=== PATIENT | female | born 1990 | race Hispanic/Latino ===

== ENCOUNTER 2017-05-10 12:26 | Inpatient (IN) | payer BC ==
[2017-05-10 12:57] VITALS: BMI 31.4
[2017-05-10] MEDS ORDERED: Zolpidem Tartrate 5 MG TAB PO PRN (13:35)
[2017-05-10] MEDS ORDERED: Lidocaine 1% (PF) 30 ML VIAL SC PRN (13:35)
[2017-05-10] MEDS ORDERED: Ibuprofen 800 MG TAB PO PRN (13:35)
[2017-05-10] MEDS ORDERED: HYDROcodone/Acetaminophen 5/325 mg Tablet PO PRN ×2 (13:35)
[2017-05-10] MEDS ORDERED: LR / Pitocin 40 units/1000 ml 1,000 ML IV PRN (13:35)
[2017-05-10] MEDS ORDERED: Acetaminophen 500 MG TAB PO PRN (13:35)
[2017-05-10] MEDS ORDERED: Ondansetron HCl/PF 4 MG/2 ML Vial IVP PRN (13:35)
[2017-05-10] MEDS ORDERED: Promethazine HCl 25 MG/ML VIAL IM PRN (13:35)
[2017-05-10 14:05] LABS: Hematocrit 38.2 % (36.0-47.0); Mean Platelet Volume 8.5 fL (7.4-10.4); Red Blood Cell (RBC) Count 4.37 mill/uL (4.20-5.40); White Blood Cell (WBC) Count 7.5 thou/uL (4.8-10.8)
--- NOTE | 2017-05-10 20:04 | PDOC.LDHP ---
Labor and Delivery H&P Chief complaint: other (sent [facility] clinic for IOL) HPI: sent [facility] clinic following routine appointment where she complained of decreased movement since Sunday. A BPP was performed and the score was 4/8 with points lost for tone, and breathing. Current gestational age (weeks): 39 Due date: 05/12/17 Dating criteria: last menstrual period Grav: 1 Para: 0 Current complications: gestational diabetes (A1), other (hyperemesis gravidarum, + H. pylori infection tx antenatally.) Abnormal US findings: No Past Medical History: Rh neg Current medications: pre-betito vitamins, other (promethazine) Allergies/Adverse Reactions: Allergies Allergy/AdvReac Type Severity Reaction Status Date / Time No Known Allergies Allergy Verified 12/13/16 01:29 Social history: none - Physical Exam Vital signs reviewed and normal: yes General: NAD Heart: RRR Lungs: CTAB Abdomen: gravid Extremeties: trace edema FHT: category 2 (strip on admission. non reactive. 125bpm baseline, moderate variability, no decelerations, no accelerations.) [place] contractions every: Q5 - non- painful - Vaginal Exam cm dilated: 0 (by speculum exam) - OB Labs RH: negative Antibody Screen: negative HIV: negative RPR: negative HEPSAg: negative 1 hour GCT: positive (3 hour not completed, patiet vomited glucola two seperate occasions) GBS: negative - Assessment L&D Assessment: medically indicated induction (decreased movement and failed bPP 4/8) - Plan Plan: admit to L&D, cervical ripening (using [employer] balloon filled with 80cc for 12 hours,) -: 1. cervical ripening for 12 hours using balloon until either SROM, balloon self dc, or 12 hours elapsed time 2. depending on CTX pattern after cook's balloon, will discuss with patient either AROM in intact vs, pitocin 3. check serum glucose BID 4 anticipate
--- NOTE | 2017-05-11 05:24 | PDOC.LDPN ---
Labor & Delivery Progress Note - Subjective Subjective: comfortable - Objective Vital signs reviewed and normal: yes General: NAD (sleeping) Uterine fundus: non tender Dilation: 5 Effacement: 75% Station: -1 FHT: category 1 [place] contractions every: absent AROM: clear fluid -: labor augmentation with AROM. If after two hours, pt does not have adequate contractions, will start pitocin for augmentation.
--- NOTE | 2017-05-11 08:19 | PDOC.LDPN ---
Labor & Delivery Progress Note - Subjective Subjective: comfortable - Objective General: NAD Uterine fundus: non tender Dilation: Pt was not examined at this time because she is not having adequate CTX FHT: category 1 [place] contractions every: 0 - Assessment (1) Primigravida Code(s): Z34.00 - ENCNTR FOR SUPRVSN OF NORMAL FIRST , UNSP TRIMESTER Current Visit: Yes Status: Acute (2) History of biophysical profile Code(s): Z92.89 - PERSONAL HISTORY OF OTHER MEDICAL TREATMENT Current Visit: Yes Status: Acute Plan: pitocin for augmentation
[2017-05-11] MEDS: LR 500 ML/Oxytocin 10 units 500 ML IV SCH (08:28)
[2017-05-11] MEDS: Lactated Ringer's 1,000 ML IV PRN ×2 (11:49→19:32)
[2017-05-11] MEDS ORDERED: Fentanyl 4 mcg/Marc 0.1% Cadd 100 ML ONE (16:59)
[2017-05-11] MEDS ORDERED: D5 LR 500 ML IV PRN (17:22)
[2017-05-11] MEDS ORDERED: D5 LR 500 ML IV SCH (17:30)
--- NOTE | 2017-05-11 17:41 | PDOC.LDPN ---
Labor & Delivery Progress Note - Subjective Subjective: painful contractions - Objective General: breathing through contractions Uterine fundus: non tender Dilation: 5 Effacement: 90% Station: 0 FHT: category 1 IUPC placed: yes - Assessment (1) Primigravida Code(s): Z34.00 - ENCNTR FOR SUPRVSN OF NORMAL FIRST , UNSP TRIMESTER Current Visit: Yes Status: Acute (2) History of biophysical profile Code(s): Z92.89 - PERSONAL HISTORY OF OTHER MEDICAL TREATMENT Current Visit: Yes Status: Acute (3) Primary inadequate contractions Code(s): O62.0 - PRIMARY INADEQUATE CONTRACTIONS Current Visit: Yes Status: Acute -: A bedside US performed at 0800 confirmed baby in Vertex MIN presentation. A: for IOL for a BPP /8 on 05/10/17. I suspect inadequate uterine inertia needed to cause cervical dilatation. P: IUPC placed. Recommended Epidural for pain management as pt is no longer coping with labor to which patient agrees Change fluid to D5LR consulted with OB hospitalist Dr. Kelley who agree with assessment of lack of uterine inertia. Will continue with pitocin augmentation until adequate contractions power is reached as evident by > 200MVU. Recheck cervical dilation 2-4 hours after adequate MVUs are documented, and if no cervical dilation will proceed with CS at that time.
[2017-05-11] MEDS ORDERED: diphenhydrAMINE 50 MG/ML VIAL IVP PRN ×2 (17:58→23:53)
[2017-05-11] MEDS ORDERED: Lactated Ringer's 500 ML IV PRN (17:58)
[2017-05-11] MEDS ORDERED: ePHEDrine/0.9% NaCl/PF SYRINGE 50 mg/10 ml SLOW IVP PRN (17:58)
[2017-05-11] MEDS ORDERED: Acetaminophen 325 MG TAB PO PRN (17:58)
[2017-05-11] MEDS ORDERED: Naloxone HCl 0.4 mg/ml Vial IVP PRN ×4 (17:58→23:53)
[2017-05-11] MEDS ORDERED: Promethazine HCl 25 MG/ML VIAL IM PRN ×2 (17:58→23:53)
[2017-05-11] MEDS ORDERED: Eucerin (Mineral Oil/Petrolatum,White) 30 gm Jar TOP PRN ×2 (17:58→23:53)
[2017-05-11] MEDS ORDERED: Ondansetron HCl/PF 4 MG/2 ML Vial IVP PRN ×2 (17:58→23:53)
[2017-05-11] MEDS ORDERED: Communication Order-Pharmacy FS SCH ×2 (18:00→23:45)
[2017-05-11] MEDS ORDERED: Fentanyl 4mcg/Marcaine 0.1% Cassette 100 ML EPIDURAL SCH (18:00)
[2017-05-11] MEDS ORDERED: Pantoprazole 40 MG VIAL IVP SCH (21:00)
[2017-05-11] MEDS ORDERED: Lactated Ringer's 1,000 ML IV SCH (21:00)
[2017-05-11] MEDS ORDERED: LR / Pitocin 40 units/1000 ml 1,000 ML IV PRN (22:15)
--- NOTE | 2017-05-11 22:24 | PDOC.LDPN ---
Labor & Delivery Progress Note - Subjective Subjective: comfortable (with epidural) - Objective Abnormal vital signs: tachycardic General: NAD Uterine fundus: non tender Dilation: 7 Effacement: 90% Station: 1+ FHT: category 2 FSE placed: yes Resuscitative measures: maternal oxygen, maternal IV fluids, maternal position change - Assessment (1) Primigravida Code(s): Z34.00 - ENCNTR FOR SUPRVSN OF NORMAL FIRST , UNSP TRIMESTER Current Visit: Yes Status: Acute (2) History of biophysical profile Code(s): Z92.89 - PERSONAL HISTORY OF OTHER MEDICAL TREATMENT Current Visit: Yes Status: Acute (3) Primary inadequate contractions Code(s): O62.0 - PRIMARY INADEQUATE CONTRACTIONS Current Visit: Yes Status: Acute -: Later decelerations, exacerbated by pt vomiting, Pitocin on 5mu. I was on unit watching strip when a prolonged deceleration started at 2154. OB hospitalist notified of prolonged deceleration to 60s while maternal resuscitation is in progress. with RN and CNM at bedside. Once fetus had recovered, discussed options with pt as to either proceed with CS or continue with labor augmentation follow a 2 hours + rest period. Pt and spouse discussed options and will proceed with delivery at this time.
[2017-05-11] MEDS ORDERED: Bicitra 30 ML UDCUP PO SCH (22:30)
[2017-05-11] MEDS ORDERED: CEFAZOLIN/Water 2 GM/20 ML SYRINGE SLOW IVP SCH (22:30)
[2017-05-11] MEDS ORDERED: Ondansetron HCl/PF 4 MG/2 ML Vial ONE (22:43)
[2017-05-11] MEDS ORDERED: Morphine PF 1 MG/ML SYR ONE (22:43)
[2017-05-11] MEDS ORDERED: Oxytocin 10 UNITS/ML VIAL ONE (22:43)
[2017-05-11] MEDS ORDERED: Ketorolac Tromethamine 30 MG/ML VIAL IVP PRN (23:53)
[2017-05-11] MEDS ORDERED: Promethazine HCl 25 MG SUPP PR PRN (23:53)
[2017-05-11] MEDS ORDERED: Naloxone HCl 0.4 mg/ml Vial IV PRN (23:53)
[2017-05-12] MEDS ORDERED: Bupivacaine/Epinephrine 0.25% 30 ML VIAL ONE (01:00)
--- NOTE | 2017-05-12 07:43 | OP ---
DATE OF ENCOUNTER: 05/11/2017 PREOPERATIVE DIAGNOSES: 1. Intrauterine at 40 weeks. 2. Non-reassuring heart tones. 3. Arrest of Labor. POSTOPERATIVE DIAGNOSES: 1. Intrauterine at 40 weeks. 2. Non-reassuring heart tones. 3. Arrest of Labor. PROCEDURE: Primary lower transverse section. SURGEON: Robbie Kelley M.D. SPACE BUYER: Ms. Priyanka Ferreira. ESTIMATED BLOOD LOSS: 800 mL URINE OUTPUT: 200 mL FINDINGS: Female delivered in vertex presentation at 2314 hours, Apgars of 7 and 8, we ight of 3239 g, 1 nuchal cord. The umbilical cord appeared scrawny with very little [place]'s jelly . Otherwise uterus appeared to be normal. Tubes appeared to be normal and ovaries appeared to be n ormal. COMPLICATIONS: None. COUNTS: Correct. CONDITION: Stable to recovery room. INDICATIONS FOR PROCEDURE: Ms. Zayda Velasco after having arrested at 7.5 cm, 0 station for several hours and with fetus unable to tolerate uterine contractions, having repetitive late dec elerations. The patient was counseled. Her options including a primary versus rest for s everal hours off Pitocin and reattempt a labor induction. The patient and the father of baby both d ecided for primary . DESCRIPTION OF PROCEDURE: She was taken to the operating room where her epidural was bolused. She was prepared and draped in normal sterile fashion and placed in the dorsal supine position with a le ftward tilt. The anesthesia was tested and found to be adequate. At that point, the patient's husb and came into the room. A Pfannenstiel skin incision was made and carried down to the level of the fascia. Fascia was incised and extended laterally with Walker scissors. With the aid of Mina clamp s, the fascia was elevated and dissected sharply and bluntly off the underlying rectus muscles. Per itoneum was entered into bluntly and extended bluntly and sharply. An Sergei O retractor was then i ntroduced. A hysterotomy was performed in the lower uterine segment in transverse fashion. The fet al head was brought to the opening of the hysterotomy and the was delivered into the sterile field with little difficulty. The mouth was bulb suctioned and the cord was clamped and cut and the infant was handed off to the waiting attendants. The placenta was then removed manually and the ut erus was cleared of all clot and debris. The hysterotomy was closed in 2 layers with #1 Monocryl on a CTX needle in first layer with a running locked stitch followed by imbricating with horizontal ma ttress suture. There was good hemostasis noted. Tubes and ovaries appeared to be normal and the Al exis O retractor was then removed. Hemostasis was noted from the rectus muscle and the underlying r ectus sheath. The peritoneum was then closed with 3-0 chromic. The fascia was closed with 0 Vicryl in a running fashion. Subcutaneous fat was closed with 3-0 plain gut in a running fashion. Skin w as closed with 4-0 Monocryl in a running fashion. The patient tolerated the procedure well and was taken to recovery room in stable condition.
[2017-05-12] MEDS ORDERED: HYDROcodone/Acetaminophen 5/325 mg Tablet PO PRN (08:13)
[2017-05-12] MEDS ORDERED: Simethicone Chewable 80 MG TAB PO PRN (08:13)
[2017-05-12] MEDS ORDERED: Ondansetron HCl/PF 4 MG/2 ML Vial IVP PRN (08:13)
[2017-05-12] MEDS ORDERED: Adacel (T-DAP) 0.5 ML VIAL IM ONE (08:13)
[2017-05-12 08:49] LABS: Hematocrit 32.8 % (36.0-47.0); Mean Platelet Volume 7.7 fL (7.4-10.4); Red Blood Cell (RBC) Count 3.72 mill/uL (4.20-5.40); White Blood Cell (WBC) Count 11.6 thou/uL (4.8-10.8)
[2017-05-12] MEDS ORDERED: Pantoprazole 40 MG VIAL IVP SCH ×2 (09:00)
--- NOTE | 2017-05-12 10:42 | PRG ---
DATE OF SERVICE: 05/12/2017 SUBJECTIVE: The patient is postop day 1, status post a primary low transverse section for nonreassuring heart tones. The patient is having good pain control this morning. Cazares molly ter still in place, having decreased lochia and is tolerating liquids. OBJECTIVE: VITAL SIGNS: Blood pressure is 98/58, pulse of 111, temperature 97.8, respiratory rate 16. GENERAL: She appears to be in no acute distress. She is alert and oriented, and cooperative and pl easant to interact with. Her incision is clean, dry, and intact. EXTREMITIES: Nontender, nonedematous. ASSESSMENT AND PLAN: The patient is postop day 1, status post a primary . Cazares catheter is due to come out around noon at which time patient will attempt the spontaneous void and begin amb ulating. Goal today is to monitor for pain control and advanced diet.
--- NOTE | 2017-05-12 10:58 | PDOC.PP ---
Post Progress Note Post Day #: 1 s/p primary CS for abnormal heart tones. Subjective: pt is doing well. Took pain medication at 0400 and reports minimal pain. BF is going well. no questions or concerns. PO intake tolerated: yes Ambulation: no Vital Signs (12 hours) Temp Pulse Resp BP BP 05/12/17 07:20 98.5 F 109 H 18 98/60 05/12/17 02:50 97.8 F 111 H 16 98/58 L 05/12/17 01:50 99.5 F 106 H 16 100/63 Weight Weight 145 lb - Physical Examination General: NAD Cardiovascular: no m/r/g, RRR Respiratory: clear to auscultation bilaterally Abdominal: + bowel sounds, lochia (minimal) Fundus firm & at: +1 Extremities: negative homans (B) Skin: CS incision dry & intact Perineum: minimal edema Neurological: no gross focal deficits Psychiatric: A&Ox3, normal affect Result Diagrams: 05/12/17 08:36 05/10/17 13:15 Additional Labs: Post Labs Blood Type A NEGATIVE 05/10/17 13:15 Hep Bs Antigen Non-Reactive S/CO (NonReactive) 05/10/17 13:15 (1) Primigravida Code(s): Z34.00 - ENCNTR FOR SUPRVSN OF NORMAL FIRST , UNSP TRIMESTER Status: Acute (2) History of biophysical profile Code(s): Z92.89 - PERSONAL HISTORY OF OTHER MEDICAL TREATMENT Status: Acute (3) Primary inadequate contractions Code(s): O62.0 - PRIMARY INADEQUATE CONTRACTIONS Status: Acute (4) delivery delivered Code(s): O82 - ENCOUNTER FOR DELIVERY WITHOUT INDICATION Status: Acute - Assessment/Plan A: G1 now P1 on PPD day 1 s/p primary CS for non reassuring heart tones. Minimal tachycardia - present since admission. LAB entered. No acute signs of infection or PE on exam P; DC foreman up to ambulation report excessive bleeding or oligouria to CNM Reassess tomorrow Call CNM if pt needs assistance with . Lab/Radiology Result Diagrams: 05/12/17 08:36 05/10/17 13:15 Lab Results - 24 Hours 05/12/17 05/11/17 08:36 19:27 WBC 11.6 H RBC 3.72 L Hgb 10.8 L Hct 32.8 L MCV 88.1 MCH 29.1 MCHC 33.0 RDW 13.2 Plt Count 229 MPV 7.7 POC Glucose 199 H
[2017-05-12] MEDS: HYDROcodone/Acetaminophen 5/325 mg Tablet PO PRN ×2 (11:10→15:42)
[2017-05-12] MEDS: Docusate (Surfak) 240 MG CAP PO SCH ×2 (11:11→21:35)
[2017-05-12] MEDS: Ferrous Sulfate 325 MG TAB PO SCH (11:11)
[2017-05-12] MEDS: Prenatal Vitamin 1 TAB PO SCH (11:12)
[2017-05-12] MEDS: Ibuprofen 800 MG TAB PO SCH ×2 (13:46→21:35)
[2017-05-12] MEDS: LR 500 ML/Oxytocin 10 units 500 ML IV SCH (18:13)
[2017-05-13] MEDS: Ferrous Sulfate 325 MG TAB PO SCH ×3 (05:09→21:43)
[2017-05-13] MEDS: Ibuprofen 800 MG TAB PO SCH ×3 (06:08→21:43)
[2017-05-13] MEDS: LR 500 ML/Oxytocin 10 units 500 ML IV SCH (08:33)
[2017-05-13] MEDS: HYDROcodone/Acetaminophen 5/325 mg Tablet PO PRN ×2 (08:36→18:16)
[2017-05-13] MEDS: Prenatal Vitamin 1 TAB PO SCH (08:36)
[2017-05-13] MEDS: Docusate (Surfak) 240 MG CAP PO SCH ×2 (08:36→21:43)
--- NOTE | 2017-05-13 08:51 | PRG ---
DATE OF SERVICE: 05/13/2017 POSTOPERATIVE DAY #2. In brief, this is a patient who underwent a primary section with Dr. Kelley and that surgery was on 05/11/2017, as a primary low-transverse section for non-reassuring heart tones and arrest of labor. I evaluated the patient today, and there were no new concerns identified. SUBJECTIVE: The patient states she is doing well and having spontaneous passage of flatus. OBJECTIVE: VITAL SIGNS: On vital sign assessment, temperature ranged from 97.6-98.4; pulse yesterday, on 05/12/2017, was slightly elevated at 103-107 and this morning was in the 70s; blood pressure ranged from 103/67-100/67; respirations were 18 and unlabored. ABDOMEN: Incision was clean, dry, and intact and sutured closed. I removed the Tegaderm dressing, which was on the incision. There was no evidence of cellulitis or metritis clinically. LABORATORY DATA: On laboratory assessment, hematocrit value was 32.8 postop, down from the original value of 38. ASSESSMENT: This is a patient who is postop day #2, doing well. PLAN: 1. Patient reports spontaneous passage of gas and we will continue to ambulate for today. 2. Routine postop care for today and anticipated discharge on postoperative day #3 per routine. No acute needs at this time. No evidence of metritis or of cellulitis. [facility]
[2017-05-14] MEDS: Ibuprofen 800 MG TAB PO SCH ×2 (06:06→14:15)
[2017-05-14 08:59] VITALS: BP 109/76; TEMP 98.4
[2017-05-14] MEDS: Ferrous Sulfate 325 MG TAB PO SCH (09:33)
[2017-05-14] MEDS: LR 500 ML/Oxytocin 10 units 500 ML IV SCH (09:33)
[2017-05-14] MEDS: Prenatal Vitamin 1 TAB PO SCH (09:34)
[2017-05-14] MEDS: Docusate (Surfak) 240 MG CAP PO SCH (09:34)
[2017-05-14] MEDS: HYDROcodone/Acetaminophen 5/325 mg Tablet PO PRN (11:16)
--- NOTE | 2017-05-14 12:40 | PDOC.PP ---
Post Progress Note Post Day #: 3 Subjective: doing well. pain well managed. ok PO intake tolerated: yes Flatus: yes Ambulation: yes Vital Signs (12 hours) Temp Pulse Resp BP 05/14/17 08:00 98.4 F 86 18 109/76 Weight Weight 145 lb - Physical Examination General: NAD Cardiovascular: no m/r/g, RRR Respiratory: clear to auscultation bilaterally Abdominal: + bowel sounds Extremities: negative homans (B) Psychiatric: A&Ox3 Result Diagrams: 05/12/17 08:36 05/10/17 13:15 Additional Labs: Post Labs Blood Type A NEGATIVE 05/10/17 13:15 Hep Bs Antigen Non-Reactive S/CO (NonReactive) 05/10/17 13:15 (1) Primigravida Code(s): Z34.00 - ENCNTR FOR SUPRVSN OF NORMAL FIRST , UNSP TRIMESTER Status: Acute (2) History of biophysical profile Code(s): Z92.89 - PERSONAL HISTORY OF OTHER MEDICAL TREATMENT Status: Acute (3) Primary inadequate contractions Code(s): O62.0 - PRIMARY INADEQUATE CONTRACTIONS Status: Acute (4) delivery delivered Code(s): O82 - ENCOUNTER FOR DELIVERY WITHOUT INDICATION Status: Acute - Assessment/Plan a: G1 now P1 s/p LTCS for non reassuring heart tones with a NML day 3 post exam. P: discharge home 1-2 week incision check at [facility] 6 week post visit.
== END 2017-05-14 16:03 | disposition home or self-care (01) | DRG 766 ==
LOC: L&D 12:26 → EDSTATUS 05-11 12:25 → L&D 05-12 00:49 → 3SW 05-12 01:27
PROVIDERS: ADMIT Obstetrics & Gynecology; ATTEND Obstetrics & Gynecology
PROC: 10D00Z1 Extraction of Products of Conception, Low, Open Approach (ICD-10-PCS; principal; 2017-05-11)
PROC: 3E0P7VZ Introduction of Hormone into Female Reproductive, Via Natural or Artificial Opening (ICD-10-PCS; 2017-05-11)
DX: O76 Abnormality in fetal heart rate and rhythm complicating labor and delivery (principal); O62.1 Secondary uterine inertia; Z37.0 Single live birth; Z3A.40 40 weeks gestation of pregnancy; O69.81X0 Labor and delivery complicated by cord around neck, without compression, not applicable or unspecified
CPT/HCPCS: 36415; 36416; 76815; 82947; 85027; 86850; 86870; 86900; 86901; 87340; 88307; C1726; C9113; J1885; J2001; J2274; J2405; J2550; J2590; J7120